=== PATIENT | female | born 1955 | race Caucasian/White ===

== ENCOUNTER 2021-09-04 00:26 | Day surgery (SDC) | payer MEDICARE, BC, SELFPAY ==
[2021-08-21 09:28] VITALS: BMI 33.0
--- NOTE | 2021-09-03 11:17 | WPDANESEPPF ---
Anes - Initial Pre Proc Eval Procedure: Operation Date: 09/04/21 09:45 Proposed Procedures p Esophagogastroduodenoscopy - Palomo Mendoza MD Date/Time: 09/03/21 11:17 Surgeon: Palomo Mendoza MD Pre Op Diagnosis: dysphagia Patient Data Age: 66 Gender: F Height: 1.57 m Weight: 82 kg Allergies Allergy/AdvReac Type Severity Reaction Status Date / Time tetracycline Allergy Unknown Rash Verified 09/04/21 08:40 Home Medications Medication Instructions Recorded Confirmed Type calcium acetate 667 mg tablet 1,334 mg PO TID 08/05/21 09/04/21 History cholecalciferol (vitamin D3) 125 125 mcg PO DAILY 08/05/21 09/04/21 History mcg (5,000 unit) capsule cinnamon bark 500 mg capsule 1,000 mg PO BID 08/05/21 09/04/21 History estradiol-norethindrone acet 1 1 tablet PO DAILY 08/05/21 09/04/21 History mg-0.5 mg tablet fluticasone 250 mcg-salmeterol 50 1 inh INHALATION BID 08/05/21 09/04/21 History mcg/dose blistr powdr for inhalation fluticasone furoate 27.5 1 spray INTRANASAL BID 08/05/21 09/04/21 History mcg/actuation nasal spray,suspension geriatric efwrdwor-aiem-epvf 1 tablet PO DAILY 08/05/21 09/04/21 History vmjzrxgskxg-qwh-atalrjnrk-hrb 1 tablet PO BID tablet 08/05/21 09/04/21 History 149-hyalur 500 mg-500 mg-66.7 mg tablet hydrochlorothiazide 12.5 mg capsule 12.5 mg PO DAILY 08/05/21 09/04/21 History montelukast 10 mg tablet 10 mg PO DAILY 08/05/21 09/04/21 History albuterol sulfate 2 inh INHALATION Q4H PRN 08/21/21 09/04/21 History azelastine 1 spray INTRANASAL BID 08/21/21 09/04/21 History omega-3 fatty acids [[place] 3] 500 mg PO BID 08/21/21 09/04/21 History Patient hx anesthesia problems: none Family hx anesthesia problems: none Results Review: All pre-operative results and documents have been reviewed as part of the pre-operative evaluation. [facility] Past Medical History Medical History Asthma GERD (gastroesophageal reflux disease) Hypertension Irregular heart beat MVP (mitral valve prolapse) Surgical History Surgical History Hx of tonsillectomy Family History Family History Mother Family history of arthritis Family history of malignant neoplasm of breast in first degree relative Family history of congestive heart failure Family history of malignant neoplasm Father Family history of lung cancer Social History Social History Smoking status: Never smoker Alcohol intake: never Living arrangements: with family Spiritual care concerns: No Anes - Eval Final PreProcedure Day of Procedure 09/03/21 11:17 Patient weight: obese Heart: regular rate and rhythm Lungs: clear to auscultation and normal air movement Airway: Mallampati scale class II Neurological: alert and oriented Last oral intake: >/= 8 hours ASA classification: III Emergent: no Anesthetic plan: proceed Anesthesia type and monitoring: general GIVS and standard monitoring Results Review: All pre-operative results and documents have been reviewed as part of the pre-operative evaluation. Informed Consent: The patient's anesthetic plan and its attendant risks and benefits were discussed with the patient/family/POA. Questions were solicited and answers provided to the satisfaction of the patient/family/POA.
[2021-09-04 08:42] VITALS: BP 129/86; PULSE 74; RESP 15; TEMP 36.8; O2SAT 99; BMI 33.2
--- NOTE | 2021-09-04 08:44 | PM.HPGS ---
History of Present Illness History of Present Illness Consent: Risks, benefits, and alternatives have been discussed and questions answered. Patient agrees to proceed with procedure. Chief complaint: dysphagia Narrative: Anne-Marie Jacobs is a 66 year old female who has had some difficulty swallowing for the past several months. She has noticed for about a year and a half that she has a tremendous amount of belching. This is particularly apt to happen while she is eating or even drinking. She has learned to avoid using her sports bottle. She does not use a straw and rarely drinks carbonated beverages. She does not have a CPAP machine. She states that she has no trouble eating except occasionally something like bread may seem to get stuck on the way down. If something isn't going down like it should she will drink a lot of water to help it down. Then she may feel as though something is gurgling. She has had difficulty with pills on a few occasions as well. The seem to get stuck about longterm down. Some of her supplements such as omega-3 are large although she has switched to the smaller size capsules. She denies nausea or vomiting. She does not have which she would call heartburn. She states that she does have regurgitation of liquid into her mouth and this happens more often than not at night. She has tried raising the head of her bed and not eating before bedtime. She keeps Tums at her bedside. She has had some recent weight loss, about 18 lb but she was trying to lose weight. Review of Systems Review of Systems: All systems reviewed & are unremarkable except as noted in HPI and below PMFSH Past Medical History Medical History Asthma GERD (gastroesophageal reflux disease) Hypertension Irregular heart beat MVP (mitral valve prolapse) Surgical History Surgical History Hx of tonsillectomy Family History Family History Mother Family history of arthritis Family history of malignant neoplasm of breast in first degree relative Family history of congestive heart failure Family history of malignant neoplasm Father Family history of lung cancer Social History Social History Smoking status: Never smoker Alcohol intake: never Living arrangements: with family Spiritual care concerns: No Meds Home Medications and Allergies Home Medications Medication Instructions Recorded Confirmed Type calcium acetate 667 mg tablet 1,334 mg PO TID 08/05/21 09/04/21 History cholecalciferol (vitamin D3) 125 125 mcg PO DAILY 08/05/21 09/04/21 History mcg (5,000 unit) capsule cinnamon bark 500 mg capsule 1,000 mg PO BID 08/05/21 09/04/21 History estradiol-norethindrone acet 1 1 tablet PO DAILY 08/05/21 09/04/21 History mg-0.5 mg tablet fluticasone 250 mcg-salmeterol 50 1 inh INHALATION BID 08/05/21 09/04/21 History mcg/dose blistr powdr for inhalation fluticasone furoate 27.5 1 spray INTRANASAL BID 08/05/21 09/04/21 History mcg/actuation nasal spray,suspension geriatric sxvxvzml-qdsi-qoga 1 tablet PO DAILY 08/05/21 09/04/21 History iuhqagksllm-hnt-rliqyyjnc-hrb 1 tablet PO BID tablet 08/05/21 09/04/21 History 149-hyalur 500 mg-500 mg-66.7 mg tablet hydrochlorothiazide 12.5 mg capsule 12.5 mg PO DAILY 08/05/21 09/04/21 History montelukast 10 mg tablet 10 mg PO DAILY 08/05/21 09/04/21 History albuterol sulfate 2 inh INHALATION Q4H PRN 08/21/21 09/04/21 History azelastine 1 spray INTRANASAL BID 08/21/21 09/04/21 History omega-3 fatty acids [[place] 3] 500 mg PO BID 08/21/21 09/04/21 History Allergies Allergy/AdvReac Type Severity Reaction Status Date / Time tetracycline Allergy Unknown Rash Verified 09/04/21 08:40 Vital Signs Vital Signs - 24 hr 09/04/21 08:42 Temperature 36.8
[2021-09-04] MEDS: LACTATED RINGERS 1,000 ML 150 ML IV CONT (08:55)
[2021-09-04 09:26] VITALS: BP 118/69; PULSE 67; RESP 18; O2SAT 96
[2021-09-04 09:36] VITALS: BP 113/71; PULSE 68; RESP 18; O2SAT 95
[2021-09-04 09:46] VITALS: BP 129/71; PULSE 70; RESP 15; O2SAT 97
== END 2021-09-04 10:10 | disposition home or self-care (01) ==
PROVIDERS: PCP Physician Assistant; Visit Provider Internal Medicine Gastroenterology
PROC: 0DJ08ZZ Inspection of Upper Intestinal Tract, Via Natural or Artificial Opening Endoscopic (ICD-10-PCS; CPT 43235; principal; 2021-09-04 09:45)
DX: K22.2 Esophageal obstruction (principal); K21.9 Gastro-esophageal reflux disease without esophagitis; I10 Essential (primary) hypertension; I34.1 Nonrheumatic mitral (valve) prolapse; J45.909 Unspecified asthma, uncomplicated; E66.9 Obesity, unspecified; Z68.33 Body mass index [BMI] 33.0-33.9, adult; Z79.51 Long term (current) use of inhaled steroids
CPT/HCPCS: 43239; 88305; J2704; J7120

== ENCOUNTER 2023-06-22 11:28 | Outpatient (CLI) | payer MEDICARE, BC, SELFPAY ==
--- NOTE | ~2023-06-22 | XR_ITS ---
EXAM: XR hand RT min 3V, XR hand LT min 3V DATE: 06/22/2023 11:58 HISTORY: POLYARTHRALGIA, HAND SWELLING, PAIN . COMPARISON: None available. FINDINGS: Normal mineralization. No fracture or dislocation. No lytic or blastic lesion. Scattered a rthritic changes, typical of osteoarthritis, moderate at the left trapeziometacarpal joint, with mild changes in the interphalangeal joints of the left fingers, the right first MCP joint, the left trape ziometacarpal joint, bilateral radiocarpal joints, and the bilateral triscaphe joints. No erosion or periosteal change. Soft tissues within normal limits. IMPRESSION: Polyarticular osteoarthritis of the hands, moderate in the left trapeziometacarpal joint. Reviewed, dictated and finalized at location K. [employer] IMPRESSION: Polyarticular osteoarthritis of the hands, moderate in the left tra peziometacarpal joint.
--- NOTE | ~2023-06-22 | XR_ITS ---
EXAM: XR sacroiliac joints min 3V DATE: 06/22/2023 11:58 HISTORY: POLYARTHRALGIA, JERO SI PAIN . COMPARISON: None available. FINDINGS: Normal mineralization. No fracture or dislocation. No lytic or blastic lesion. Mild degene rative change at the bilateral SI joints. Severe lower lumbar facet sclerosis and hypertrophy. No ero katiuska or periosteal change. Soft tissues within normal limits. IMPRESSION: Mild degenerative change at the bilateral SI joints. Severe lower lumbar facet arthropath y. Reviewed, dictated and finalized at location K. [employer] IMPRESSION: Mild degenerative change at the bilateral SI joints. Severe lower l umbar facet arthropathy.
== END 2023-06-22 11:29 | disposition home or self-care (01) ==
LOC: ANHIMG 11:35
PROVIDERS: PCP Physician Assistant; Visit Provider Internal Medicine
DX: M19.042 Primary osteoarthritis, left hand (principal); M19.041 Primary osteoarthritis, right hand; M47.816 Spondylosis without myelopathy or radiculopathy, lumbar region; M46.1 Sacroiliitis, not elsewhere classified
CPT/HCPCS: 72202; 73130

== ENCOUNTER 2023-12-09 13:42 | Outpatient (CLI) | payer MEDICARE, BC, SELFPAY ==
--- NOTE | ~2023-12-09 | XR_ITS ---
XR hand RT min 3V DATE: 12/09/2023 14:03 INDICATION: Polyarthralgia TECHNIQUE: 3 views COMPARISON: None FINDINGS: No fracture or dislocation, periosteal reaction or bone destruction. No erosive change or c hondrocalcinosis. IMPRESSION: No significant abnormality Reviewed, dictated and finalized at location J. IMPRESSION: No significant abnormality
--- NOTE | ~2023-12-09 | XR_ITS ---
XR hand LT min 3V DATE: 12/09/2023 14:03 INDICATION: Polyarthralgia TECHNIQUE: 3 views COMPARISON: 07/02/2023 FINDINGS: There is prominent osteoarthritic change at the first carpometacarpal joint. There is some narrowing at the interphalangeal joints. No fracture or dislocation, periosteal reaction or bone destruction. No erosive change or chondrocalcinosis. IMPRESSION: Osteoarthritis, involving primarily the first carpometacarpal joint Reviewed, dictated and finalized at location J.
== END 2023-12-09 13:43 | disposition home or self-care (01) ==
LOC: ANHIMG 13:44
PROVIDERS: PCP Physician Assistant
DX: M19.042 Primary osteoarthritis, left hand (principal)
CPT/HCPCS: 73130

== ENCOUNTER 2024-07-03 00:58 | Day surgery (SDC) | payer MEDICARE, BC, SELFPAY ==
[2024-06-19 13:26] VITALS: BMI 31.0
--- OUTSIDE RECORDS SUMMARY | 2024-07-03 01:02 | XMS_ITS | Continuity of Care Document ---
Author Organization [facility] Address [address] [place] [address] Phone Care Team Providers Care Figure Refinisher And Repairer Name Role Phone Grant Rolon MD Unavailable Unavailable Allergies, Adverse Reactions, Alerts Substance Reaction Status Criticality tetracycline Rash Active No Information Medications Medication Instructions Dosage Effective Dates (start - stop) Status Comments Wixela Inhub 250 mcg-50 mcg/dose powder for inhalation inhale 1 puff by inhalation route 2 times every day in the morning and evening approximately 12 hours apart 1.00 puff - Active azelastine 0.15 % (205.5 mcg) nasal spray spray 1 spray by intranasal route 2 times every day in each nostril 205.5 MCG - Active fluticasone propionate 50 mcg/actuation nasal spray,suspension spray 2 spray (100MCG) by intranasal route every day in each nostril - Active montelukast 10 mg tablet TAKE ONE TABLET BY MOUTH ONCE DAILY IN THE EVENING - Active ProAir HFA 90 mcg/actuation aerosol inhaler inhale 2 puff by inhalation route 4 - 6 hours as needed - Active prednisone 10 mg tablet take 4 Tablet by oral route every day for 5 days then decrease by 1 tab daily till off 40 MG - Active ChlorTabs 4 mg tablet take 1 tablet by oral route every 8 hours as needed 4 MG - Active VITAMIN E (unknown strength) Not Available - Active Vitamin D3 2,000 unit tablet one daily - Active B12 5,000 mcg-100 mcg sublingual lozenge - Active Citracal with Vitamin D Petites 200 mg calcium-250 unit tablet - Active Boniva 150 mg tablet take 1 tablet (150MG) by oral route every month on the same date; Take with a full glass of water and remain in an upright position for at least 60 minutes. - Active Femhrt 1/5 1 mg-5 mcg Tab take 1 tablet by oral route every day - Active Advance Directives Directive Yes / No Effective Date File Name No Information Encounters Encounter Description Practice Location Reason(s) For Visit Diagnoses Date Provider Providers Copied on Encounter [facility], [address], [place], [place], [id number] , tel: [phone] [facility] No Information Gonzales Burns. [address], [id number], [place]. tel:[phone] [facility], [address], [place], [place], [address] , tel: [phone] [facility] Moderate persistent asthma, uncomplicatedAlle rgic rhinitis due to pollen Gonzales Burns. [address], [id number], [place]. tel:[phone] Referring Provider: Omar Field, [address] [address], [place], [address] . tel:[phone] [facility], [address], [place], [place], [id number] , [place] tel: [phone] [facility] Moderate persistent asthma, uncomplicatedAlle rgic rhinitis due to pollen Gonzales Burns. [address], [id number], [place]. tel:[phone] Referring Provider: Omar Field, [address] [address], [place], [address] . tel:[phone] [facility], [address], [place], [id number] , tel: [phone] [facility] Moderate persistent asthma, uncomplicatedAlle rgic rhinitis due to pollen Gonzales Burns. [address], [id number], [place]. [phone] Referring Provider: Omar Field, [address], [address] . tel:[phone] [facility], [address], [place], [place], [id number] , tel: [phone] [facility] Mild persistent asthma, uncomplicatedAlle rgic rhinitis due to pollen Sep-0 6- 7 Gonzales Burns. [address] [place] [address], [id number], [place]. tel:[phone] Referring Provider: Omar Field, [address], [address] . tel:[phone] [facility], [address], [place], [place], [address] , [place] tel: [phone] [facility] Mild persistent asthma, uncomplicatedAlle rgic rhinitis due to pollen Mar-0 6- 7 Gonzales Burns. [address] [place] [address], [id number], [place]. tel:[phone] Referring Provider: Omar Field, [address], [address] . tel:[phone] [facility], [address], [place], [place], [id number] , [place] tel: [phone] [facility] Mild persistent asthma, uncomplicatedAlle rgic rhinitis due to pollen Sep-0 8- 6 Gonzales Burns. [address] [place] [address], [id number], [place]. tel:[phone] Referring Provider: Omar Field, [address], [address] . tel:[phone] [facility], [address], [place], [id number] , [place] tel: [phone] [facility] Mild persistent asthma, uncomplicatedAlle rgic rhinitis due to pollen Mar-1 0- 6 Gonzales Burns. [address], [id number], [place]. tel:[phone] Referring Provider: Omar Field, [address] [address], [place], [address] . tel:[phone] [facility], [address], [place], [place], [id number] , tel: [phone] [facility] EXTRINSIC ASTHMA, UNSPECIFIEDAllerg ic rhinitis due to pollen Sep-0 9 5 Gonzales Burns. [address], [id number], [place]. tel:[phone] Referring Provider: Omar Field, [address] [address], [place], [address] . tel:[phone] [facility], [address], [place], [place], [id number] , [place] tel: [phone] [facility] EXTRINSIC ASTHMA, UNSPECIFIEDAllerg ic rhinitis due to pollen Mar-0 9 5 Gonzales Burns. [address], [id number], [place]. tel:[phone] Referring Provider: Mc Washington, [address] [place] [address], [address]. tel:[phone] [facility], [address], [place], [place], [address] , [place] tel: [phone] [facility] EXTRINSIC ASTHMA, UNSPECIFIEDAllerg ic rhinitis due to pollen Sep-1 5 4 Gonzales Burns. [address], [id number], [place]. tel:[phone] Referring Provider: Grant Rolon, [address] [place] [address], [address] . tel:[phone] [facility], [address], [place], [place], [address] , [place] tel: [phone] [facility] EXTRINSIC ASTHMA, UNSPECIFIEDAllerg ic rhinitis due to pollen Mar-1 0-201 4 Gonzales Burns. [address], [id number], [place]. tel:[phone] Referring Provider: Mc Washington [address] [place] [address], [address]. tel:[phone] [facility], [address], [place], [place], [address] , [place] tel: [phone] [facility] EXTRINSIC ASTHMA, UNSPECIFIEDAllerg ic rhinitis due to pollenNEED FOR PROPHYLACTIC VACCINATION AND INOCULATION, INFLUENZA Sep-0 3 Gonzales Burns. [address], [id number], [place]. tel:[phone] Referring Provider: Mc Washington [address] [place] [address], [address]. tel:[phone] [facility], [address], [place], [place], [address] , [place] tel: [phone] [facility] EXTRINSIC ASTHMA, UNSPECIFIEDAllerg ic rhinitis due to pollen Jul-1 3 Gonzales Burns. [address], [id number], [place]. tel:[phone] Referring Provider: [place], [address]. tel:[phone] [facility], [address], [place], [place], [address] , [place] tel: [phone] [facility] EXTRINSIC ASTHMA, UNSPECIFIEDAllerg ic rhinitis due to pollen Jan- 2 Gonzales Burns. [address], [id number], [place]. tel:[phone] Referring Provider: [place], [address]. tel:[phone] [facility], [address], [place], [place], [address] , [place] tel: [phone] [facility] EXTRINSIC ASTHMA, UNSPECIFIEDAllerg ic rhinitis due to pollen Jul-1 2 2 Gonzales Burns. [address], [id number], . tel:[phone] Referring Provider: Ricky Reilly [address] [place] [address] [address], [place], [address]. tel:[phone] [facility], [address] [place] [address], [id number] , tel: [phone] [facility] Allergic rhinitis due to pollen Jan- 1 Gonzales Burns. [address] [place] [address], [id number], . [phone] Referring Provider: Ricky Reilly [address] [place] [address] [address], [place], [address]. tel:[phone] [facility], [address] [facility], [place], [place], [address] , tel: [phone] [facility] EXTRINSIC ASTHMA, UNSPECIFIEDAllerg ic rhinitis due to pollenEsophageal reflux 1 Gonzales Burns. [address] [place] [address], [id number], . tel:[phone] Referring Provider: Ricky Reilly [address] [place] [address] [place] [address], [address]. tel:[phone] [facility], [address] [place] [address], [id number] , tel: [phone] [facility] EXTRINSIC ASTHMA NOSRHINITIS DUE TO POLLEN 0 [facility]. [address] [place] [address], [address], [place]. [facility], [address] [place] [address], [id number] , [place] tel: [phone] [facility] COUGHESOPHAGEAL REFLUX 0 Gonzales Burns. [address] [place] [address], [id number], . tel:[phone] [facility], [address] [facility], [place], [place], [address] , tel: [phone] [facility] ACUTE URI NOSEXT ASTHMA W(ACUTE) EXAC 6-200 7 [facility]. [address] [place], [address], . [facility], [address], [place], [place], [address] , tel: [phone] [facility] AC MAXILLARY SINUSITIS 0-200 6 [facility]. [address] [place], [address], . [facility], [address], [place], [place], [address] , tel: [phone] [facility] AC ATOPIC CONJUNCTIVITIS 4200 5 [facility]. [address] [place], [address], . Family History Family Member Type Diagnosis Age At Onset No Information Immunizations Vaccine Date Status Comments Flu (split) (3 yrs or older) administered Source: New Immunization Record Payers Payer name Insurance type Covered green party ID Authorjordon oviedooctaviano(s) [facility] [id number] Social History Type Description Quantity Date Captured Comments Alcohol Use Details Unknown Caffeine Use Details Unknown Tobacco Use Status No Information Smoking Status No Information Sex Female Chief Complaint And Reason For Visit No Information Reason For Referral Reason For Referral No Information History Of Present Illness Encounter Date Complaint History Of Prese nt Illness No Information Functional Status Date Functional Assessmen t No Information Instructions Date Instruction Additional Infor mation No Information Assessments Type Assessment Date No Information Patient Care Teams Name Effective Dates (start - stop) Status Members No Information
[2024-07-03] MEDS: LACTATED RINGERS 1,000 ML 150 ML IV CONT (08:27)
--- NOTE | 2024-07-03 08:36 | WPDANESEPPF ---
Anes - Initial Pre Proc Eval Procedure: Operation Date: 07/03/24 09:00 Proposed Procedures p Screening Colonoscopy - Darrian Li MD Date/Time: 07/03/24 08:36 Surgeon: Darrian Li MD Pre Op Diagnosis: family hx malignant neoplasm digestive organs Patient Data Age: 69 Gender: F Height: 1.6 m Weight: 81.9 kg Allergies Allergy/AdvReac Type Severity Reaction Status Date / Time tetracycline Allergy Unknown Rash Verified 07/03/24 08:08 Home Medications ?Medication ?Instructions ?Recorded ?Confirmed ?Type calcium acetate 667 mg tablet 1,334 mg PO TID 08/05/21 07/03/24 History cholecalciferol (vitamin D3) 125 125 mcg PO DAILY 08/05/21 07/03/24 History mcg (5,000 unit) capsule (Dialyvite Vitamin D) cinnamon bark 500 mg capsule 1,000 mg PO BID 08/05/21 07/03/24 History (Cinnamon) estradiol-norethindrone acet 1 1 tablet PO DAILY 08/05/21 07/03/24 History mg-0.5 mg tablet (Activella) fluticasone 250 mcg-salmeterol 50 1 inh inhalation BID 08/05/21 07/03/24 History mcg/dose blistr powdr for inhalation (Advair Diskus) fluticasone furoate 27.5 1 spray intranasal BID 08/05/21 07/03/24 History mcg/actuation nasal spray,suspension geriatric mepwjrit-hdgn-apey 1 tablet PO DAILY 08/05/21 07/03/24 History (Centravites 50 Plus tablet) sxtbcmkhcub-dkr-olqyhkepg-hrb 1 tablet PO BID 08/05/21 07/03/24 History 149-hyalur 500 mg-500 mg-66.7 mg tablet (Dpagzthjszg-Flomqnjppye-KJB (with antiox)) hydrochlorothiazide 12.5 mg capsule 12.5 mg PO DAILY 08/05/21 07/03/24 History montelukast 10 mg tablet 10 mg PO DAILY 08/05/21 07/03/24 History (Singulair) albuterol sulfate 90 mcg/actuation 2 inh inhalation Q4H PRN Shortness 08/21/21 06/19/24 History aerosol inhaler Of Breath azelastine 205.5 mcg (0.15 %) 1 spray intranasal BID 08/21/21 07/03/24 History nasal spray omega-3 fatty acids 500 mg PO BID 08/21/21 07/03/24 History omeprazole 20 mg capsule,delayed 20 mg PO DAILY 06/19/24 07/03/24 History release Patient hx anesthesia problems: none Family hx anesthesia problems: none Results Review: All pre-operative results and documents have been reviewed as part of the pre-operative evaluation. [facility] Past Medical History Medical History MVP (mitral valve prolapse) Irregular heart beat Hypertension GERD (gastroesophageal reflux disease) Asthma Surgical History Surgical History Hx of tonsillectomy Family History Family History Mother Family history of arthritis Family history of malignant neoplasm of breast in first degree relative Family history of congestive heart failure Family history of malignant neoplasm Father Family history of lung cancer Social History Social History Smoking status: Never smoker Alcohol intake: never Substance use type: does not use Living arrangements: with family Spiritual care concerns: No Anes - Eval Final PreProcedure Day of Procedure 07/03/24 08:36 Patient weight: normal Heart: regular rate and rhythm Lungs: normal air movement Airway: Mallampati scale class II Neurological: alert and oriented Last oral intake: >/= 8 hours ASA classification: III Emergent: no Anesthetic plan: proceed Anesthesia type and monitoring: general GIVS and standard monitoring Results Review: All pre-operative results and documents have been reviewed as part of the pre-operative evaluation. Informed Consent: The patient's anesthetic plan and its attendant risks and benefits were discussed with the patient/family/POA. Questions were solicited and answers provided to the satisfaction of the patient/family/POA.
--- NOTE | 2024-07-03 08:59 | PM.HPGS ---
History of Present Illness History of Present Illness Consent: Risks, benefits, and alternatives have been discussed and questions answered. Patient agrees to proceed with procedure. Chief complaint: family hx malignant neoplasm digestive organs Narrative: Anne-Marie Jacobs is a 69 year old female with last colonoscopy 2019, family members with colon cancer Review of Systems Review of Systems: All systems reviewed & are unremarkable except as noted in HPI and below Constitutional: Constitutional: Denies headache(s) and Denies weakness Eyes: Eyes: Denies blurry vision ENT: Reports Normal hearing present, Denies headache(s) and Denies neck pain Cardiovascular: Cardiovascular: Denies chest pain and Denies dyspnea Respiratory: Respiratory: Denies dyspnea Gastrointestinal: Gastrointestinal: Reports no additional gastrointestinal complaints Genitourinary: Genitourinary: Denies dysuria Musculoskeletal: Musculoskeletal: Denies neck pain Integumentary/Breasts: Skin/Breast: Denies dry skin Neurologic: Reports Normal hearing present, Denies headache(s) and Denies weakness Psychiatric: Psychiatric: Denies anxiety Endocrine: Endocrine: Denies change in body appearance Hematologic/Lymphatic: Hematologic/Lymphatic: Denies easy bleeding Allergic/Immunologic: Allergic/Immunologic: Denies urticaria PMFSH Past Medical History Medical History MVP (mitral valve prolapse) Irregular heart beat Hypertension GERD (gastroesophageal reflux disease) Asthma Surgical History Surgical History Hx of tonsillectomy Family History Family History Mother Family history of arthritis Family history of malignant neoplasm of breast in first degree relative Family history of congestive heart failure Family history of malignant neoplasm Father Family history of lung cancer Social History Social History Smoking status: Never smoker Alcohol intake: never Substance use type: does not use Living arrangements: with family Spiritual care concerns: No Meds Home Medications and Allergies Home Medications ?Medication ?Instructions ?Recorded ?Confirmed ?Type calcium acetate 667 mg tablet 1,334 mg PO TID 08/05/21 07/03/24 History cholecalciferol (vitamin D3) 125 125 mcg PO DAILY 08/05/21 07/03/24 History mcg (5,000 unit) capsule (Dialyvite Vitamin D) cinnamon bark 500 mg capsule 1,000 mg PO BID 08/05/21 07/03/24 History (Cinnamon) estradiol-norethindrone acet 1 1 tablet PO DAILY 08/05/21 07/03/24 History mg-0.5 mg tablet (Activella) fluticasone 250 mcg-salmeterol 50 1 inh inhalation BID 08/05/21 07/03/24 History mcg/dose blistr powdr for inhalation (Advair Diskus) fluticasone furoate 27.5 1 spray intranasal BID 08/05/21 07/03/24 History mcg/actuation nasal spray,suspension geriatric ovvcargi-wvkv-wvgs 1 tablet PO DAILY 08/05/21 07/03/24 History (Centravites 50 Plus tablet) gshyoifrdfd-sun-tmwtozijc-hrb 1 tablet PO BID 08/05/21 07/03/24 History 149-hyalur 500 mg-500 mg-66.7 mg tablet (Abmuuetsnnp-Hudcffqycfw-BYW (with antiox)) hydrochlorothiazide 12.5 mg capsule 12.5 mg PO DAILY 08/05/21 07/03/24 History montelukast 10 mg tablet 10 mg PO DAILY 08/05/21 07/03/24 History (Singulair) albuterol sulfate 90 mcg/actuation 2 inh inhalation Q4H PRN Shortness 08/21/21 06/19/24 History aerosol inhaler Of Breath azelastine 205.5 mcg (0.15 %) 1 spray intranasal BID 08/21/21 07/03/24 History nasal spray omega-3 fatty acids 500 mg PO BID 08/21/21 07/03/24 History omeprazole 20 mg capsule,delayed 20 mg PO DAILY 06/19/24 07/03/24 History release Allergies Allergy/AdvReac Type Severity Reaction Status Date / Time tetracycline Allergy Unknown Rash Verified 07/03/24 08:08 Assessment and Plan Assessment and plan (1) Family history of colon cancer: Code(s): Z80.0 - Family history of malignant neoplasm of digestive organs Status: Acute Assessment and Plan: colonoscopy
[2024-07-03 09:21] VITALS: BP 113/70; PULSE 73; RESP 16; O2SAT 100
[2024-07-03 09:31] VITALS: BP 106/60; PULSE 67; RESP 16; O2SAT 97
[2024-07-03 09:41] VITALS: BP 127/75; PULSE 73; RESP 16; O2SAT 100
== END 2024-07-03 09:52 | disposition home or self-care (01) ==
PROVIDERS: PCP Registered Nurse; Visit Provider Internal Medicine Gastroenterology
PROC: 0DJD8ZZ Inspection of Lower Intestinal Tract, Via Natural or Artificial Opening Endoscopic (ICD-10-PCS; CPT 45378; principal; 2024-07-03 09:00)
DX: Z12.11 Encounter for screening for malignant neoplasm of colon (principal); K63.5 Polyp of colon; K64.8 Other hemorrhoids; Z80.0 Family history of malignant neoplasm of digestive organs
CPT/HCPCS: 45385; 88305; J2003; J2704; J7120